=== PATIENT | male | born 1985 | race African-American/Black ===

== ENCOUNTER 2024-09-11 10:24 | Emergency (ER) | payer BC ==
[~2024-09-11] VITALS: Ht 190.5 cm; Wt 69.3 kg
[2024-09-11 10:28] VITALS: BP 166/95; PULSE 129; O2SAT 100
[2024-09-11] MEDS ORDERED: HYDR-3973 PO (11:04)
--- NOTE | 2024-09-11 11:04 | Physician Documentation ---
History of Present Illness ~ Chief Complaint: Ankle pain Stated Complaint: R ANKLE PAIN Time Seen by MD: 10:47 OK to notify your PCP?: Yes Source: patient Mode of Arrival: POV Exam Limitations: no limitations HPI 39-year-old male with chief complaint right ankle pain after he fell off a ladder last night approximately 6 ft high. He landed on his right foot and immediately felt pain in his ankle. He has not been able to weight bear since. He went to a walk-in clinic this morning and was told he had a fracture. He states the walk-in clinic sent a referral to [facility] but directed him here to the ER for splinting. Patient states his pain is an 8/10 in severity. No pre arrival treatment. Patient states he did not hit his head and there was no loss of consciousness. He denies any neck or back pain. Denies any pain in his chest or upper extremities. Medication Reconciliation Allergies: Coded Allergies: No Known Allergies (Unverified , 09/11/24) Scheduled PRN Hydrocodone Bit/Acetaminophen (Hydrocodone-Apap 10-325 Tablet), 1 TAB PO TID PRN PRN for pain Past Medical History Past Medical History: No Pertinent History Review of Systems All Other Systems at this time: Reviewed and Negative Physical Exam Vital Signs: Temperature: 98.9, Source: Temporal, Heart Rate: 129, Respiratory Rate: 15, BP: 166/95, Pulse Oximetry: 100, Weight: 69.300 Physical Exam General Appearance: Alert, WD/WN. NAD. HEENT: NCAT, PERRL, EOMI. Neck: Supple, trachea midline. Cardiovascular: RRR. No m/r/g. Lungs: CTAB. Breathing unlabored Extremities: Pedal pulses right foot 2+, swelling over the right ankle with ecchymosis mostly over the lateral malleolus, tenderness over the medial and lateral malleolus, no step-off at Achilles, no tenderness over the metatarsals. Normal inspection of right knee joint, full active range motion nontender. Skin: Warm/dry, normal color Neurological: Alert and oriented x4, ambulating with crutches which he states he got a urgent care unable to weight bear on right foot. Psychiatric: Affect congruent with mood. Procedures Splinting Location: right Hand-Made Type: orthoglass Splint: deidre short leg Pre-Proc Neuro Vasc Exam: normal Post-Proc Neuro Vasc Exam: normal Splint Placed By: final inspector movement assembly Tolerated Procedure Well?: yes, no complications Progress Progress Note PROCEDURE: Right ankle radiographs. INDICATION: ANKLE PAIN TECHNIQUE: 3 views of the right ankle were obtained. COMPARISON: None FINDINGS: There is no evidence of fracture or dislocation. Joint spaces are maintained. The soft tissues are unremarkable. IMPRESSION: 1. No fracture or dislocation. Results/Orders Reviewed/noted all lab results: Yes Results/Orders Orders - DIYA HOLM Ortho Orders (09/11/24 10:57) Completed Orders - DIYA HOLM Hydrocodone/Apap 10/325 (Holly 10/325mg (09/11/24 11:00) Medications Received in ER Medications (Trade) Dose Ordered Sig/Emperatriz Route PRN Reason Start Time Stop Time Status Last Admin Dose Admin (Holly 10/325mg tab) 1 tab ONCE ONCE PO 09/11/24 11:00 09/11/24 11:01 DC 09/11/24 11:05 1 TAB Vital Signs 09/11/24 09/11/24 10:28 11:05 Temp 98.9 Pulse 129 Resp 15 16 B/P (MAP) 166/95 Pulse Ox 100 Medical Decision Making Ankle Diff Dx:Considerations: Include: Abrasion, Arthritis, Contusion, DJD, Fracture-metatarsal, Fracture-fibula, Fracture-tarsal, Fracture-tibia, Gout, Hematoma, Laceration, Malunion, Neurovascular injury, Nonunion, Open fracture, Osteomyelitis, Rheumatoid arthritis, Sprain, Septic, Ulcer Departure Time of Disposition: 11:38 Disposition: 01 HOME / SELF CARE / HOMELESS Impression: Primary Impression: Sprain of ankle Qualified Codes: S93.401A - Sprain of unspecified ligament of right ankle, initial encounter Condition: Stable Discharge Instructions: Ankle Sprain Additional Instructions: F/U WITH ORTHOPEDIST THAT YOU WHERE REFERRED TO BY WALK IN CLINIC I CAN NOT SEND REFERRAL BECAUSE XRAY READ NEGATIVE WEAR SPLINT UNTIL SEEN BY ORTHO, ICE, ELEVATE, PAIN MEDICATION SENT TO PHARMACY IF WORSENING OF PAIN, TOES THAT ARE COLD TO TOUCH, TOES THAT ARE RED IN COLOR OR ANY OTHER CONCERNING SYMPTOMS WHILE WAITING TO SEE ORTHO RETURN TO ER. Referrals: NO PRIMARY CARE PROVIDER (PCP) Prescriptions Hydrocodone Bit/Acetaminophen (Hydrocodone-Apap 10-325 Tablet) 10mg/325mg Tablet 1 TAB PO TID PRN PRN for pain for 5 Days, #15 TAB DX: ANKLE FRACTURE ICD 10 S82.301 Prov: DIYA HOLM 09/11/24 Education Educated: Patient Educated regarding: diagnosis, treatment, need for follow up Signature Scribe Signature: x Attestation: DIYA Gonzalez September 11, 2024 11:04
[2024-09-11 11:05] VITALS: RESP 16
[2024-09-11] MEDS: HYDROcodone/acetaminophen 10/325mg tab PO ONE (11:05)
--- NOTE | 2024-09-11 11:18 | RADIOLOGY REPORT ---
PROCEDURE: Right ankle radiographs. INDICATION: ANKLE PAIN TECHNIQUE: 3 views of the right ankle were obtained. COMPARISON: None FINDINGS: There is no evidence of fracture or dislocation. Joint spaces are maintained. The soft tis sues are unremarkable. IMPRESSION: 1. No fracture or dislocation.
[2024-09-11 12:17] VITALS: TEMP 98.9
== END 2024-09-11 12:18 | disposition home or self-care (01) ==
LOC: ER 10:25
DX: S93.491A Sprain of other ligament of right ankle, initial encounter (principal); W11.XXXA Fall on and from ladder, initial encounter; Y93.89 Activity, other specified; Y92.89 Other specified places as the place of occurrence of the external cause; Y99.8 Other external cause status
CPT/HCPCS: 29515; 73610; 99284; L4360; A6449